=== PATIENT | female | born 1960 | race Caucasian/White ===

== ENCOUNTER 2025-03-01 06:29 | Inpatient (IN) | payer MEDICARE, BC ==
[2025-02-26 10:56] LABS: BASOPHILS % 0.3 % (0.0-1.0); EOSINOPHILS % 0.9 % (0.0-6.0); LYMPHOCYTES % 17.3 % (18.0-39.1); MONOCYTES % 8.8 % (4.4-11.3); NEUTROPHILS % 72.3 % (38.7-80.0); RED CELL DISTRIBUTION WIDTH 14.9 % (11.7-14.4)
[2025-02-26 11:18] LABS: EST GLOMERULAR FILTRATION RATE 99.0 ML/MIN (>=60)
[~2025-03-01] VITALS: Ht 162.6 cm; Wt 69.5 kg
[~2025-03-01 06:29] MED LIST: BUSPIRONE HCL10 MG PO; CEPHALEXIN500 MG PO; DILTIAZEM 24HR120 M1 PO; ELIQUIS5 MG PO; FUROSEMIDE40 MG PO; HYDROCODON-ACE1 EAC9 PO; LAMICTAL100 MG PO; LYRICA150 MG PO; LYSINE1000 MG PO; MAGNESIUM OXID400 MG PO; METHOCARBAMOL750 MG PO; METOPROLOL TART25 MG PO; POTASSIUM CHLO20 ME1 PO; PRISTIQ ER50 MG PO; VITAMIN C500 MG PO; ZINC50 M2 PO
[2025-03-01] MEDS ORDERED: DOCUSATE SODIUM 100 MG CAP PO PRN ×2 (07:00→17:30)
[2025-03-01] MEDS ORDERED: HYDROCODONE/APAP 7.5MG-325MG 1 EA TAB PO PRN (07:00)
[2025-03-01] MEDS ORDERED: ROCURONIUM BROMIDE 1 ML IV ONE (07:20)
[2025-03-01] MEDS ORDERED: LIDOCAINE HCL 2% LOCAL INJ 5 ML SDV VIAL INJ ONE (07:20)
[2025-03-01] MEDS ORDERED: FENTANYL CITRATE/PF 100MCG/2 ML INJ ONE ×2 (07:20→07:56)
[2025-03-01] MEDS ORDERED: PROPOFOL IV EMULSION 10 MG/ML 20 ML VIAL ONE ×2 (07:20→09:27)
[2025-03-01] MEDS ORDERED: BUPIVACAINE 0.5%/EPI 30 ML SDV INJ ONE ×2 (07:55→07:56)
[2025-03-01] MEDS ORDERED: MIDAZOLAM HCL 2 MG/2 ML VIAL ONE (07:56)
[2025-03-01] MEDS ORDERED: METOCLOPRAMIDE HCL 10 MG/2ML VIAL ONE (09:08)
[2025-03-01] MEDS ORDERED: ONDANSETRON HCL INJ 2MG/ML 2ML 2 MG/ML VIAL ONE (09:08)
[2025-03-01] MEDS ORDERED: FAMOTIDINE 20 MG/2 ML VIAL IV ONE (09:08)
[2025-03-01] MEDS ORDERED: DEXAMETHASONE SOD PHOS INJ 4 MG/ML SDV ONE (09:08)
[2025-03-01] MEDS ORDERED: HYDROMORPHONE 2MG/ML ONE (09:11)
[2025-03-01] MEDS ORDERED: ACETAMINOPHEN 1000 MG/100 ML 100 ML IV ONE (09:24)
[2025-03-01] MEDS ORDERED: METOPROLOL TARTRATE INJ 1 MG/ML VIAL ONE (09:42)
[2025-03-01] MEDS ORDERED: PHENYLEPHRINE HCL 1% 10 MG/ML VIAL ONE (10:12)
[2025-03-01] MEDS ORDERED: SUGAMMADEX SODIUM 200 MG/2 ML VIAL IV ONE (10:42)
[2025-03-01] MEDS: HYDROMORPHONE 1MG/1ML INJ ONE ×2 (12:05→13:35)
[2025-03-01] MEDS: GENTAMICIN 80MG/NS 100 ML 100 ML IV ONE (15:54)
[2025-03-01] MEDS: ROPIVACAINE/EPI/CLONIDINE/KET 50 ML SYRINGE INJ ONE (15:54)
[2025-03-01] MEDS: CEFAZOLIN SODIUM 2 GM ONE (15:54)
[2025-03-01 16:10] VITALS: BP 120/61; PULSE 69; RESP 17; TEMP 97.3; O2SAT 98
[2025-03-01] MEDS: GABAPENTIN 300 MG CAP PO SCH (16:30)
[2025-03-01] MEDS: LACTATED RINGER'S 1,000 ML ONE (16:32)
[2025-03-01] MEDS: CEFAZOLIN SODIUM 2 GM in SODIUM CHLORIDE 0.9% 100 ML IV SCH (16:49)
[2025-03-01] MEDS: MORPHINE SULFATE ER 15 MG TAB PO SCH (16:49)
[2025-03-01] MEDS ORDERED: GABAPENTIN 300 MG CAP PO SCH (17:00)
[2025-03-01 17:06] VITALS: BP 120/61; PULSE 69; RESP 17; TEMP 97.3; O2SAT 98
[2025-03-01] MEDS: RIFAMPIN 300 MG CAP PO SCH (17:21)
[2025-03-01] MEDS ORDERED: DIPHENHYDRAMINE HCL 25 MG CAP PO PRN (17:30)
[2025-03-01] MEDS ORDERED: SIMETHICONE 80 MG CHEW PO PRN (17:30)
[2025-03-01] MEDS ORDERED: HYDRALAZINE HCL 20 MG/ML VIAL IV PRN (17:30)
[2025-03-01] MEDS ORDERED: LIDOCAINE 4% PATCH TP PRN (17:30)
[2025-03-01] MEDS ORDERED: ONDANSETRON HCL INJ 2MG/ML 2ML 2 MG/ML VIAL IV PRN (17:30)
[2025-03-01] MEDS ORDERED: DEXTROSE 50% SYRINGE 50 ML IV PRN (17:30)
[2025-03-01] MEDS ORDERED: ALBUTEROL/IPRATROPIUM 3 ML NEB NEB PRN (17:30)
[2025-03-01] MEDS ORDERED: BENZONATATE 100 MG CAP PO PRN (17:30)
[2025-03-01] MEDS ORDERED: POTASSIUM CHLORIDE 20 MEQ TAB CR PO PRN (17:30)
[2025-03-01] MEDS: OXYCODONE HCL 10 MG TAB CR PO PRN (17:49)
[2025-03-01 20:00] VITALS: BP 102/51; PULSE 72; RESP 20; TEMP 98.1; O2SAT 97
[2025-03-01] MEDS: APIXABAN 5 MG TABLET PO SCH (21:41)
[2025-03-02] VITALS (10 sets, daily range): BP systolic 105–142; BP diastolic 45–72; PULSE 78–100; RESP 15–20; TEMP 98.6–100; O2SAT 95–100
[2025-03-02] MEDS: HYDROMORPHONE 1MG/1ML INJ IV PRN (05:03)
[2025-03-02] MEDS: PANTOPRAZOLE SOD 40 MG TABEC PO SCH (09:11)
[2025-03-02] MEDS: PREGABALIN 75 MG CAP PO SCH (09:12)
[2025-03-02] MEDS: MORPHINE SULFATE ER 15 MG TAB PO SCH (09:12)
[2025-03-02] MEDS ORDERED: DILTIAZEM HCL30 MG PO (13:36)
[2025-03-02] MEDS: DILTIAZEM HCL 30 MG TAB PO SCH (14:20)
[2025-03-02 15:17] LABS: BASOPHILS % 0.2 % (0.0-1.0); EOSINOPHILS % 0.1 % (0.0-6.0); LYMPHOCYTES % 16.8 % (18.0-39.1); MONOCYTES % 9.8 % (4.4-11.3); NEUTROPHILS % 72.7 % (38.7-80.0); RED CELL DISTRIBUTION WIDTH 14.6 % (11.7-14.4)
[2025-03-02 15:28] LABS: EST GLOMERULAR FILTRATION RATE 98.0 ML/MIN (>=60)
[2025-03-02] MEDS: ONDANSETRON HCL INJ 2MG/ML 2ML 2 MG/ML VIAL IV PRN (15:36)
[2025-03-02] MEDS ORDERED: APIXABAN 5 MG TABLET PO SCH (17:00)
[2025-03-02] MEDS ORDERED: PREGABALIN 75 MG CAP PO SCH (17:00)
[2025-03-02] MEDS ORDERED: ENOXAPARIN SOD INJ 40 MG/0.4 ML SYR SC SCH (17:00)
[2025-03-02] MEDS: BUSPIRONE HCL 10 MG TABLET PO SCH (17:21)
[2025-03-02] MEDS: METHOCARBAMOL 750 MG TAB PO SCH (17:22)
[2025-03-02] MEDS: METOPROLOL TARTRATE 25 MG TAB PO SCH (17:24)
[2025-03-02] MEDS: ACETAMINOPHEN 325 MG TAB PO PRN (20:08)
[2025-03-03] VITALS (10 sets, daily range): BP systolic 106–129; BP diastolic 53–65; PULSE 75–96; RESP 17–18; TEMP 98.1–99.6; O2SAT 94–100
[2025-03-03] MEDS: ACETAMINOPHEN 1000 MG/100 ML IV PRN (02:42)
[2025-03-03 07:44] LABS: BASOPHILS % 0.5 % (0.0-1.0); EOSINOPHILS % 0.4 % (0.0-6.0); LYMPHOCYTES % 19.0 % (18.0-39.1); MONOCYTES % 13.0 % (4.4-11.3); NEUTROPHILS % 66.6 % (38.7-80.0); RED CELL DISTRIBUTION WIDTH 14.9 % (11.7-14.4)
[2025-03-03 07:56] LABS: EST GLOMERULAR FILTRATION RATE 101.0 ML/MIN (>=60)
[2025-03-03] MEDS: DESVENLAFAXINE SUCCINATE 50 MG TAB.SR.24H PO SCH (09:03)
[2025-03-03] MEDS: LAMOTRIGINE 100 MG TAB PO SCH (09:04)
[2025-03-03] MEDS: FUROSEMIDE 40 MG TAB PO SCH (09:12)
[2025-03-03] MEDS: SODIUM CHLORIDE 0.9% 250ML 250 ML ONE (20:23)
[2025-03-03] MEDS: SODIUM CHLORIDE 0.9% 250ML 250 ML IV ONE (20:24)
[2025-03-04] VITALS (10 sets, daily range): BP systolic 106–116; BP diastolic 47–59; PULSE 74–97; RESP 18; TEMP 97.4–99.2; O2SAT 94–100
[2025-03-05] VITALS (11 sets, daily range): BP systolic 99–125; BP diastolic 51–68; PULSE 66–89; RESP 18–20; TEMP 97.4–98.6; O2SAT 77–100
[2025-03-05 05:51] LABS: BASOPHILS % 0.7 % (0.0-1.0); EOSINOPHILS % 3.5 % (0.0-6.0); LYMPHOCYTES % 28.9 % (18.0-39.1); MONOCYTES % 11.0 % (4.4-11.3); NEUTROPHILS % 55.7 % (38.7-80.0); RED CELL DISTRIBUTION WIDTH 14.7 % (11.7-14.4)
[2025-03-05 06:12] LABS: EST GLOMERULAR FILTRATION RATE 103.0 ML/MIN (>=60)
[2025-03-05] MEDS: KETOROLAC TROMETHAMINE 30 MG/ML VIAL IV PRN (14:06)
[2025-03-05] MEDS: SODIUM FERRIC GLUCONATE COMPLX 125 MG in SODIUM CHLORIDE 0.9% 100 ML IV SCH (16:38)
[2025-03-06 03:24] VITALS: BP 107/60; PULSE 82; RESP 18; TEMP 97.6; O2SAT 99
[2025-03-06 07:03] VITALS: PULSE 82; RESP 20; O2SAT 96
[2025-03-06 08:16] VITALS: BP 107/55; PULSE 81; RESP 18; TEMP 97.9; O2SAT 98
[2025-03-06 09:00] VITALS: BP 107/55; PULSE 81; RESP 18; TEMP 97.9; O2SAT 98
== END 2025-03-06 10:50 | disposition home health service (06) | DRG 467 ==
LOC: OR 06:29 → PACU V 06:52 → MED/SURG 16:09
PROVIDERS: ADMIT Orthopaedic Surgery Adult Reconstructive Orthopaedic Surgery; ATTEND Orthopaedic Surgery Adult Reconstructive Orthopaedic Surgery
PROC: 0SPD0JZ Removal of Synthetic Substitute from Left Knee Joint, Open Approach (ICD-10-PCS; 2025-03-01)
PROC: 0SRD0J9 Replacement of Left Knee Joint with Synthetic Substitute, Cemented, Open Approach (ICD-10-PCS; principal; 2025-03-01 08:48)
PROC: 02HV33Z Insertion of Infusion Device into Superior Vena Cava, Percutaneous Approach (ICD-10-PCS; 2025-03-02)
PROC: 30233N1 Transfusion of Nonautologous Red Blood Cells into Peripheral Vein, Percutaneous Approach (ICD-10-PCS; 2025-03-02)
DX: T84.54XA Infection and inflammatory reaction due to internal left knee prosthesis, initial encounter (principal); D62 Acute posthemorrhagic anemia; M86.9 Osteomyelitis, unspecified; I11.0 Hypertensive heart disease with heart failure; I50.9 Heart failure, unspecified; E78.5 Hyperlipidemia, unspecified; B95.61 Methicillin susceptible Staphylococcus aureus infection as the cause of diseases classified elsewhere; I48.0 Paroxysmal atrial fibrillation; G89.4 Chronic pain syndrome; M19.90 Unspecified osteoarthritis, unspecified site; M54.9 Dorsalgia, unspecified; M16.12 Unilateral primary osteoarthritis, left hip; Y83.1 Surgical operation with implant of artificial internal device as the cause of abnormal reaction of the patient, or of later complication, without mention of misadventure at the time of the procedure; Z79.01 Long term (current) use of anticoagulants; Z96.652 Presence of left artificial knee joint
CPT/HCPCS: 36415; 36569; 71045; 71046; 80048; 85025; 86140; 86850; 86900; 86920; 87071; 87075; 87205; 93005; 94799; C1713; C1776; J0690; J1100; J1171; J1308; J1580; J1885; J2003; J2250; J2371; J2405; J2470; J2765; J2916; J7050; P9016